=== PATIENT | male | born 1980 ===

== ENCOUNTER 2025-01-01 06:26 | Day surgery (SDC) | payer BC, SELFPAY | END 2025-01-01 12:33 | disposition home or self-care (01) | LOC: GI 06:26 | PROVIDERS: ATTENDING PHYSICIAN Surgery | DX: K64.8 Other hemorrhoids (principal); K56.2 Volvulus; Q43.8 Other specified congenital malformations of intestine; Z80.0 Family history of malignant neoplasm of digestive organs | CPT/HCPCS: 45378 ==